=== PATIENT | male | born 1950 | race Caucasian/White ===

== ENCOUNTER 2018-11-17 14:11 | Emergency (ER) | payer MEDICARE, MEDICAID ==
[~2018-11-17] VITALS: Ht 167.6 cm; Wt 74.5 kg
[~2018-11-17 14:11] MED LIST: ATOR20TA86 PO; BENA10TA12 PO; BIMA2.5OS OU; FINA5TAB41 PO; INSLAN SQ; METF1000 PO; OMEP20 PO; PROZ10 PO; RISP4 PO; TAMS0.4C32 PO
[2018-11-17] MEDS ORDERED: INSLAN SQ (14:35)
[2018-11-17 14:39] LABS: GLUCOSE,POINT OF CARE 67 MG/DL (70-110)
[2018-11-17 14:53] LABS: APPEARANCE,URINE CLEAR (CLEAR); BILIRUBIN,URINE NEGATIVE (NEGATIVE); GLUCOSE, URINE (UA) NEGATIVE (NEGATIVE); KETONES,URINE NEGATIVE (NEGATIVE); LEUKOCYTE ESTERASE ,URINE NEGATIVE (NEGATIVE); NITRATE,URINE NEGATIVE (NEGATIVE); OCCULT BLOOD,URINE TRACE (NEGATIVE); PROTEIN,URINE NEGATIVE (NEGATIVE); UROBILINOGEN,URINE 0.2 mg/dL (<=1.0)
[2018-11-17 15:12] LABS: BACTERIA,URINE None Seen /HPF (None Seen); RBC,URINE 0-2 /HPF (0-2); WBC,URINE None Seen /HPF (0-5)
[2018-11-17 15:13] LABS: SQUAMOUS EPITHELIAL CELL,UR None Seen /LPF (None Seen)
[2018-11-17 15:23] LABS: GLUCOSE,POINT OF CARE 98 MG/DL (70-110)
[2018-11-17 15:25] LABS: BASOPHILS % (AUTO) 0.3 % (0.0-2.0); EOSINOPHILS % (AUTO) 0.2 % (1.0-6.0); HEMATOCRIT 35.3 % (41-53); HEMOGLOBIN 11.9 g/dL (13.5-17.5); LYMPHOCYTES # (AUTO) 0.7 K/uL (1.0-4.8); LYMPHOCYTES % (AUTO) 7.1 % (22.0-44.0); MEAN CORPUSCULAR HGB CONC 33.8 G/dL (31.0-37.0); MEAN CORPUSCULAR VOLUME 86 fL (80-100); MONOCYTES # (AUTO) 0.6 K/uL (0.1-1.0); MONOCYTES % (AUTO) 6.3 % (2.0-9.0); NEUTROPHILS # (AUTO) 8.5 K/uL (1.8-7.7); PLATELET COUNT (AUTO) 277 K/uL (150-450); RED BLOOD CELL COUNT(AUTO) 4.12 MIL/uL (4.50-5.90); RED CELL DISTRIBUTION WIDTH 14.2 % (11.5-14.5)
[2018-11-17 15:34] LABS: NEUTROPHILS % (AUTO) 86.1 % (40.0-70.0)
[2018-11-17 15:38] LABS: ANION GAP 8 mmol/L (8-16); CALCIUM, TOTAL 9.3 mg/dL (8.8-10.5); CARBON DIOXIDE 30 mmol/L (22-29); CHLORIDE 104 mmol/L (98-107); CREATININE 0.83 mg/dL (0.60-1.30); GLOMERULAR FILTR. RATE CALC > 60 mL/min (>60); GLUCOSE,RANDOM 132 mg/dL (70-110); POTASSIUM 4.2 mmol/L (3.5-5.1); SODIUM SERUM 142 mmol/L (136-145); UREA NITROGEN, BLOOD 13 mg/dL (7-18)
[2018-11-17 16:04] LABS: ALANINE AMINOTRANSFERASE 20 U/L (12-78); ALBUMIN 3.6 g/dL (3.4-5.0); ALKALINE PHOSPHATASE 52 U/L (46-116); ASPARTATE AMINOTRANSFERASE 27 U/L (15-37); BILIRUBIN,TOTAL 0.2 mg/dL (0.1-1.0); CREATINE KINASE, TOTAL ONLY 481 U/L (39-308); TOTAL PROTEIN, SERUM 7.9 g/dL (6.4-8.2)
[2018-11-17 16:15] LABS: B-TYPE NATRIURETIC PEPTIDE 33 pg/mL (0-100)
[2018-11-17 16:16] VITALS: BP 179/80
== END 2018-11-17 17:26 | disposition home or self-care (01) ==
LOC: EMS 14:12
DX: E11.649 Type 2 diabetes mellitus with hypoglycemia without coma (principal); I10 Essential (primary) hypertension; F20.9 Schizophrenia, unspecified; K21.9 Gastro-esophageal reflux disease without esophagitis; Z79.4 Long term (current) use of insulin
CPT/HCPCS: 93005